=== PATIENT | female | born 1955 | race Caucasian/White ===

== ENCOUNTER 2016-10-25 08:10 | Outpatient (CLI) | payer OTHER | END 2016-10-25 08:11 | disposition home or self-care (01) | DX: M85.88 Other specified disorders of bone density and structure, other site (principal) ==

== ENCOUNTER 2017-11-28 09:26 | Outpatient (CLI) | payer OTHER | END 2017-11-28 09:27 | disposition home or self-care (01) | LOC: SC 09:26 | PROVIDERS: ATTEND Internal Medicine Pulmonary Disease | DX: G47.33 Obstructive sleep apnea (adult) (pediatric) (principal) | CPT/HCPCS: 99203; 99212 ==

== ENCOUNTER 2018-02-22 07:32 | Outpatient (CLI) | payer OTHER ==
[2018-02-22] MEDS ORDERED: IOPAMIDOL-300 50 ML VIAL PO ONE (07:48)
[2018-02-22] MEDS ORDERED: IOPAMIDOL-300 50 ML VIAL ONE (07:54)
--- NOTE | 2018-02-22 11:18 | CT Report ---
Procedure Date: 02/22/2018 Accession Number: [id number] / [id number] Procedure: CT - Abdomen/Pelvis W/O CPT Code: FULL RESULT: EXAM: Abdomen/Pelvis W/O DATE: 02/22/2018 9:55 AM CLINICAL HISTORY: NON HEALING SURGICAL WOUND. 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 COMPARISON: None. TECHNIQUE: Routine helical CT imaging was performed through the abdomen and pelvis. IV contrast: No. Enteric contrast: Yes. Reconstructions: Coronal and sagittal. In accordance with CT protocol optimization, one or more of the following dose reduction techniques were utilized for this exam: automated exposure control, adjustment of mA and/or KV based on patient size, or use of iterative reconstructive technique. FINDINGS: Lung Bases: Unremarkable. Liver: Normal. No masses. Gallbladder/Bile Ducts: The patient is status post cholecystectomy. Spleen: Normal. Pancreas: Normal. Adrenal Glands: Normal. Kidneys: Normal. No masses or hydronephrosis. Peritoneal Cavity/Bowel: Normal. No free fluid, free air or adenopathy. No masses or acute inflammatory process. Pelvic Organs: No oral contrast is seen in the anal region. There is asymmetric thickening of the anterior ratio renal fossa with loss of fat plane of the levator ani at 11:00. Findings are incompletely imaged on the most caudal axial slice. The bladder and visualized pelvic organs are within normal limits. Vasculature: No aneurysms or other significant abnormality. Bones: No significant abnormality. Other: None. IMPRESSION: Intra-abdominal and intrapelvic anatomy is normal above the pelvic floor within the limitations of a noncontrast CT. Question abnormal ischioanal fossa as described, incompletely imaged. If the patient's findings and symptoms of pain are in the anorectal region, MRI pelvis is recommended. RADIA
== END 2018-02-22 07:33 | disposition home or self-care (01) ==
LOC: DI 07:32
PROVIDERS: ATTEND Surgery
DX: T81.89XA Other complications of procedures, not elsewhere classified, initial encounter (principal)
CPT/HCPCS: 74176; Q9967

== ENCOUNTER 2019-05-28 08:52 | Outpatient (CLI) | payer OTHER ==
--- NOTE | 2019-05-28 09:35 | SLEEP CARE CONSULTATION ---
Information from patient questionnaire entered by Madisyn Kruse. I have reviewed and concur with the information entered by Madisyn Kruse. This document represents the service I personally performed and the decisions made by me, Paz Barry MD, [facility]. History of Present Illness Previous diagnosis: Moderate, Obstructive Sleep Apnea-Hypopnea Syndrome AHI: 20.4 Reason for CPAP/BiPAP follow up: annual Equipment type: CPAP Equipment obtained from: [employer] Mask brand: Resmed Prior sleep studies: Yes Year and Where: 2013 [facility] HPI additional information: HPI: Ms. Schofield returned today for follow up of nasal CPAP therapy. She was diagnosed to have moderate obstructive sleep apnea-hypopnea syndrome. The patient wears with a nasal mask. She reports using the device nightly and all through the night, averaging 8.6 hours a night. She complained of no particular problem with the device such as soreness on the face, dry nose, epistaxis, nasal congestion or headache. She thinks that the pressure of 9 10 cmH2O is comfortable but does not increase during the night as it used to. On the CPAP therapy she notices improvement in her sleep quality, and that she wakes up feeling fresher in the morning and more awake/alert during the day. The [place] Sleepiness Scale score 0. Her notices occasional snore despite the CPAP. The average residual AHI is 1.6; and air leak, 5.1 L/min. The 90th percentile pressure is 9.7 cmH2O. CPAP Compliance Data - Data Reviewed with Patient Average duration of nightly device use: 8h 34m Compliance rate %: 100 Current pressure setting (cmH2O): 9 Subjective Patient concerns: reports: aerophagia, nasal congestion, other (Machine no longer fully cycles) Initial [place] Sleepiness Scale score: 0 Current [place] Sleepiness Scale score: 0 Allergies and Home Medications Drug allergies reviewed: Yes Home medication list reviewed: Yes Review of Systems Review of systems same as previous: Yes Physical Exam Weight: 167 lb Impression and Plan IMPRESSION: 1. Obstructive Sleep Apnea-Hypopnea Syndrome, moderate, with the patient doing well on nasal CPAP therapy. She has excellent compliance and significant clinical improvement. The current pressure appears effective and comfortable. Overall, she is very satisfied with treatment and plans to continue with it long-term. Because the CPAP is now older than the useful life of 5 years, I will order the patient a new one and make it an autoCPAP set between 9 and 10 cmH2O. PLAN: 1. Prescription made for an autoCPAP, heated humidifier, and related supplies. 2. Try ResMed N30i mask or Respironics DreamWear nasal cushion mask. 3. Return for follow up after one month on the new machine. I spent 100% of this 20 minute visit face to face with the patient with greater than 50% of this was spent time counseling the patient and coordination of care.
== END 2019-05-28 08:53 | disposition home or self-care (01) ==
LOC: SC 08:52
PROVIDERS: ATTEND Internal Medicine Pulmonary Disease
DX: G47.33 Obstructive sleep apnea (adult) (pediatric) (principal)
CPT/HCPCS: 99212; 99213

== ENCOUNTER 2019-10-18 15:57 | Outpatient (CLI) | payer OTHER ==
--- NOTE | 2019-10-18 16:33 | Mammography Report ---
Reason: ROUTINE MAMMO Procedure Date: 10/18/2019 Accession Number: [id number] / [id number] Procedure: JANIS - Screening Mammo Dig Bilat CPT Code: Final Report FULL RESULT: EXAM: Screening Mammo Dig Bilat DATE: 10/18/2019 4:19 PM CLINICAL HISTORY: Screening encounter. History of nulliparity. Family history of breast cancer in the mother at the age of 50, sister at the age of 40 and a maternal grandmother at unknown age. TECHNIQUE: (B) - Bilateral CC and MLO views were obtained. COMPARISON: 08/14/2018 through 11/15/2011. PARENCHYMAL PATTERN: (D) - The breast(s) demonstrate(s) heterogeneously dense fibroglandular parenchyma. FINDINGS: There are no suspicious masses, calcifications, or areas of distortion. IMPRESSION: Negative examination. BI-RADS category 1. RECOMMENDATION: (ANNUAL) - Recommend routine annual screening mammography. BI-RADS CATEGORY: (1) - Negative. STANDARD QUALIFYING STATEMENTS: 1. This examination was not reviewed with the aid of Computer-Aided Detection (CAD). 2. A negative or benign imaging report should not preclude biopsy if clinically suspicious findings are present. 3. Dense breasts may obscure an underlying neoplasm. 4. This examination was reviewed without the aid of 3D breast imaging (tomosynthesis).
== END 2019-10-18 15:58 | disposition home or self-care (01) ==
LOC: DI 15:57
DX: Z12.31 Encounter for screening mammogram for malignant neoplasm of breast (principal); Z80.3 Family history of malignant neoplasm of breast
CPT/HCPCS: 77067

== ENCOUNTER 2021-03-03 11:21 | Outpatient (CLI) | payer OTHER ==
--- NOTE | 2021-03-03 12:07 | SLEEP CARE CONSULTATION ---
Information from patient questionnaire entered by Stephanie Isidro. I have reviewed and concur with the information entered by Stephanie Isidro. This document represents the service I personally performed and the decisions made by , Cielo Miller ARNP. History of Present Illness Service Date and Time: 03/03/2021 1121 Previous diagnosis: Moderate, Obstructive Sleep Apnea-Hypopnea Syndrome AHI: 20.4 (in 2013) Reason for follow up: annual (last seen 09/2019) Equipment type: CPAP Equipment obtained from: [employer] (getting supplies, but not recently) Mask style: Nasal Mask brand: Resmed (over the nose) Backup mask available: Yes (old mask) Last cushion change: 7 weeks plus Prior sleep studies: Yes Year and Where: [address] [place] [address] Sleep Lab Type of Sleep Study: Polysomnography HPI additional information: NING LEDESMA was diagnosed to have moderate, AHI 20.4, obstructive sleep apnea- hypopnea syndrome and returned today for CPAP therapy annual follow-up. CPAP Compliance Data - Data Reviewed with Patient Average duration of nightly device use: 8 hr 3 min Compliance rate %: 100 (180 days) Current pressure setting (cmH2O): 9 Humidity settin Heated hose settin Average residual AHI: 1.9 Average large leak: 39 min 40 sec Subjective Patient concerns: reports: other (snore while using device occasionally). denies: aerophagia, mask discomfort, air blowing in eyes, mask leak noise, condensation in mask/hose, nasal congestion, dry mouth, nose, throat, epistaxis Observed to snore while using device: Yes (not very much) Current pressure setting perceived as: comfortable On therapy, patient: reports: sleeping better, awakening more refreshed, being more awake and alert during the day, more rested overall. denies: drowsiness while driving Initial [place] Sleepiness Scale score: 0 (in 2018) Current [place] Sleepiness Scale score: 0 Allergies and Home Medications Home medication list reviewed: Yes (no changes) Review of Systems Review of systems same as previous: Yes (no changes) Physical Exam Heart Rate: 64 O2 Saturation: 97 Height: 5 ft 8 in Weight: 172 lb 12.8 oz Body Mass Index: 26.2 BMI Classification: Overweight Impression and Plan 1. Obstructive Sleep Apnea-Hypopnea Syndrome, moderate, with excellent treatment compliance and good apnea control. On CPAP therapy, the patient has better sleep quality and is more rested overall. Ning has not been able to get supplies since she has not had a compliance appointment for some time. I will send a prescription to update supplies to help get them restarted. Patient has a Dreamstation that may be on the recall. I discussed with patient that [employer] has a recall on several devices like the patients machine. Patient was encouraged to register their device online with [employer] for the recall to see if their device is affected. If their device is affected they should start a claim. Patient denies any black particles seen in machine or hoses, any unusual odors coming from device. Patient has not experienced any physical symptoms such as upper airway irritation, headache, skin or eye irritation, asthma, nausea/vomiting, difficulty breathing or chest pain. Patient informed that they may use an inline CPAP filter that they can obtain online to reduce chance of any particles being inhaled or ingested. We discussed thoroughly the health risks of not using the CPAP versus continuing use with the filter in place. If patient is not able to sleep due to waking up choking, gasping for air or other respiratory distress that they may decide to continue using it until it is either replaced or repaired. Patient voiced understanding and agreement with plan. Patient's apnea severity and rationale for treatment to reduce apnea, improve sleep quality and reduce cardiovascular and cerebrovascular events was reviewed. I also reviewed the benefit of consistent device use of CPAP for depression/anxiety. * Continue CPAP pressure at 9 cmH2O * Update supplies * Notify me if snoring with mask or feeling that the pressure is too much or too little * Attempt to lose weight * Call this office if any problems using CPAP * Return for follow up in 1 year, or sooner if concerns arise Counseling Topics: Spare mask, Weight loss health impact Visit Type: In Office Time Spent with Patient (minutes): 20 Provider Statement: I spent 100% of the Face to Face Visit with the patient with greater than 50% spent counseling the patient and coordination of care.
== END 2021-03-03 11:22 | disposition home or self-care (01) ==
LOC: SC 11:21
PROVIDERS: ATTEND Nurse Practitioner Family
DX: G47.33 Obstructive sleep apnea (adult) (pediatric) (principal)
CPT/HCPCS: 99212; 99213

== ENCOUNTER 2021-03-07 14:30 | Outpatient (CLI) | payer OTHER ==
--- NOTE | 2021-03-08 14:20 | Mammography Report ---
BILATERAL DIGITAL SCREENING MAMMOGRAM 3D/2D: 03/07/2021 CLINICAL: Family history of breast cancer. Comparison is made to exams dated: 10/18/2019 mammogram - [facility], 07/17/2017 ma mmogram, 01/08/2014 mammogram, 08/14/2018 mammogram - [facility], 04/17/2015 mammogram - [facility], and 12/25/2012 mammogram - [facility]. The tissue of both breasts is h eterogeneously dense. This may lower the sensitivity of mammography. There is a possible new 0.3 cm oval equal density asymmetry in the right breast anterior depth medial region seen on the craniocaudal view only 3 cm from the nipple. No other significant masses, calcifications, or other findings are seen in either breast. IMPRESSION: INCOMPLETE: NEEDS ADDITIONAL IMAGING EVALUATION The possible new 0.3 cm oval equal density asymmetry in the right breast is indeterminate. Additiona l views with possible ultrasound are recommended. This exam was interpreted at Station ID: [id number]. NOTE: For mammograms, a report in lay terms will be sent to the patient. Approximately 15% of breast malignancies will not be visualized mammographically. In the management of a palpable breast mass, a negative mammogram must not discourage biopsy of a clinically suspicious lesion. Electronically Signed By: Daniel Cedeno M.D. aty/:03/08/2021 08:30:23 ACR BI-RADS Category 0: Incomplete 3340F PARENCHYMAL PATTERN: (D) - The breast(s) demonstrate(s) heterogeneously dense fibroglandular parenchy ma. BI-RADS CATEGORY: (0) - 0 Mammo and [place] [id number] Immediate follow-up LATERALITY: (R)
== END 2021-03-07 14:31 | disposition home or self-care (01) ==
LOC: DI.S 14:30
DX: Z12.31 Encounter for screening mammogram for malignant neoplasm of breast (principal); R92.8 Other abnormal and inconclusive findings on diagnostic imaging of breast; Z80.3 Family history of malignant neoplasm of breast

== ENCOUNTER 2021-03-26 12:01 | Outpatient (CLI) | payer OTHER ==
--- NOTE | 2021-03-29 15:59 | Mammography Report ---
UNILATERAL RIGHT DIGITAL DIAGNOSTIC MAMMOGRAM 3D/2D: 03/26/2021 CLINICAL: Patient returns today to evaluate an asymmetry in the right breast. Comparison is made to exams dated: 03/07/2021 mammogram, 10/18/2019 mammogram - [facility], 08/14/2018 mammogram, 07/17/2017 mammogram - [facility], 04/17/2015 mammogram - [facility], and 01/08/2014 mammogram - [facility]. The tissue of right breast is he terogeneously dense. This may lower the sensitivity of mammography. There is a possible 0.3 cm oval equal density asymmetry in the right breast anterior depth medial reg ion seen on the craniocaudal view only 3 cm from the nipple. This is less prominent. No other significant masses or calcifications are seen in the breast. IMPRESSION: INCOMPLETE: NEEDS ADDITIONAL IMAGING EVALUATION The possible 0.3 cm oval equal density asymmetry in the right breast is less prominent and favored to represent fibroglandular tissue. An ultrasound is scheduled to follow. This exam was interpreted at Station ID: [id number]. NOTE: For mammograms, a report in lay terms will be sent to the patient. Approximately 15% of breast malignancies will not be visualized mammographically. In the management of a palpable breast mass, a negative mammogram must not discourage biopsy of a clinically suspicious lesion. Electronically Signed By: Kirill Baum M.D. jr/:03/26/2021 13:19:27 ACR BI-RADS Category 0: Incomplete 3340F PARENCHYMAL PATTERN: (D) - The breast(s) demonstrate(s) heterogeneously dense fibroglandular juanita calle. BI-RADS CATEGORY: (0) - 0 Ultrasound [id number] Immediate follow-up LATERALITY: (B)
--- NOTE | 2021-03-29 15:59 | Ultrasound Report ---
LIMITED ULTRASOUND OF RIGHT BREAST: 03/26/2021 CLINICAL: Patient returns today to evaluate a focal asymmetry in the right breast. Comparison is made to exams dated: 03/26/2021 mammogram, 03/07/2021 mammogram, 10/18/2019 mammogram - [facility], 08/14/2018 mammogram, 07/17/2017 mammogram - [facility], and 2014 mammogram - [facility]. Real-time ultrasound of the right breast 2-4 o'clock region was performed. Bauman scale images of the real-time examination were reviewed. There is no sonographic correlate for the 0.3 cm asymmetry in the right breast at 3 o'clock anterior depth 3 cm from the nipple. IMPRESSION: PROBABLY BENIGN Mammographically seen 0.3 cm asymmetry has no sonographic correlate and is less prominent with spot c ompression. This is favored to represent fibroglandular tissue. A follow-up mammogram in 6 months is recommended to demonstrate stability. This exam was interpreted at Station ID: [id number]. Electronically Signed By: Kirill Baum M.D. jr/:03/26/2021 13:20:44 Ultrasound BI-RADS: 3 Probably benign BI-RADS CATEGORY: (3) - 3 Mammogram [id number] 6 month follow-up LATERALITY: (B)
== END 2021-03-26 12:02 | disposition home or self-care (01) ==
LOC: DI 12:01
PROVIDERS: ATTEND Family Medicine
DX: R92.8 Other abnormal and inconclusive findings on diagnostic imaging of breast (principal)

== ENCOUNTER 2022-05-06 08:18 | Outpatient (CLI) | payer MEDICARE, OTHER ==
[2022-05-06 09:01] VITALS: BP 116/70
--- NOTE | 2022-05-06 09:01 | SLEEP CARE CONSULTATION ---
Information from patient questionnaire entered by Ilana Huerta. I have reviewed and concur with the information entered by Ilana Huerta. This document represents the service I personally performed and the decisions made by me, Cielo Miller ARNP. History of Present Illness Service Date and Time: 05/06/2022 0818 Previous diagnosis: Moderate, Obstructive Sleep Apnea-Hypopnea Syndrome AHI: 20.4 (in 2013) Reason for follow up: annual (LAST SEEN 02/24) Equipment type: CPAP (DREAMSTATION) Equipment obtained from: [employer] (getting supplies but needs updated prescription) Mask style: Nasal (over the nose) Backup mask available: Yes (old mask) Last cushion change: 2 weeks + Prior sleep studies: Yes Year and Where: [address] [place] [address] Sleep Lab Type of Sleep Study: Polysomnography HPI additional information: NING LEDESMA was diagnosed to have moderate, AHI 20.4, obstructive sleep apnea- hypopnea syndrome and returned today for CPAP therapy annual follow-up. Sleep Study - Results Type of Sleep Study: Polysomnography Prior sleep studies: Yes Year and Where: [address] [place] [address] Sleep Lab CPAP Compliance Data - Data Reviewed with Patient Average duration of nightly device use: 7 hours, 53 minutes, 9 seconds Compliance rate %: 98.9 (11/06/21 to 05/04/22; 179/180 days used) Current pressure setting (cmH2O): 9.0 Average residual AHI: 2.2 Average large leak: 1 hour 18 mins 37 secs Compliance data discussion: Patient is using a new [employer] replacement device that is a Dreamstation that she received about 3 months ago. Subjective Missed days of use due to: reports: travel (flying) Patient concerns: reports: other (Ramp setting is not automatic like her old one). denies: aerophagia, mask discomfort, air blowing in eyes, mask leak noise, condensation in mask/hose, nasal congestion, dry mouth, nose, throat, epistaxis Observed to snore while using device: No Current pressure setting perceived as: comfortable On therapy, patient: reports: sleeping better, awakening more refreshed, being more awake and alert during the day, more rested overall. denies: drowsiness while driving Initial [place] Sleepiness Scale score: 0 (in 2018) Current [place] Sleepiness Scale score: 0 (05/06/22) Allergies and Home Medications Drug allergies reviewed: Yes (NKDA) Home medication list reviewed: Yes (no changes) Allergy and home medication list: Allergies No Known Drug Allergies Allergy (Verified 12/10/15 15:50) Review of Systems Review of systems same as previous: Yes (no changes) Physical Exam Vital signs obtained and entered by: NAYELI MOSELEY Blood Pressure: 116/70 (LEFT ARM ) Cuff size: regular Heart Rate: 69 O2 Saturation: 98 Height: 5 ft 8 in Weight: 182 lb Body Mass Index: 27.6 BMI Classification: Overweight Impression and Plan 1. Obstructive Sleep Apnea-Hypopnea Syndrome, moderate, with good treatment compliance and good apnea control. On CPAP therapy, the patient has better sleep quality and is more rested overall. Patient has significant improvement of their sleep apnea and are satisfied with current CPAP therapy. Patient denies problems with oral dryness, nasal congestion, epistaxis, skin irritation or aerophagia. Patient's apnea severity and rationale for treatment to reduce apnea, improve sleep quality and reduce cardiovascular and cerebrovascular events was reviewed. I also reviewed the benefit of consistent device use of CPAP for depression/anxiety. * Continue CPAP pressure at 9 cmH2O * Update supplies * Notify me if snoring with mask or feeling that the pressure is too much or too little * Call this office if any problems using CPAP * Return for follow up in 1 year, or sooner if concerns arise Counseling Topics: Spare mask Visit Type: In Office Time Spent with Patient (minutes): 11 Provider Statement: I spent 100% of the Face to Face Visit with the patient with greater than 50% spent counseling the patient and coordination of care.
== END 2022-05-06 08:19 | disposition home or self-care (01) ==
LOC: SC 08:18
PROVIDERS: ATTEND Nurse Practitioner Family
DX: G47.33 Obstructive sleep apnea (adult) (pediatric) (principal)
CPT/HCPCS: 99212; G0463

== ENCOUNTER 2022-05-27 08:08 | Outpatient (CLI) | payer MEDICARE, OTHER ==
--- NOTE | 2022-05-27 10:52 | Mammography Report ---
BILATERAL DIGITAL DIAGNOSTIC MAMMOGRAM 3D/2D: 05/27/2022 CLINICAL: Patient returns for a 6 month follow up of the right breast, due for bilateral exam. Comparison is made to exams dated: 11/11/2021 mammogram - [facility], 03/26/2021 mammogram, 03/07/2021 mammogram, 10/18/2019 mammogram - [facility], 08/14/2018 mammogram, and 07/17/2017 ma mmogram - [facility]. Both breasts are heterogeneously dense, which may obscure small masses (category c / 51-75% glandular tissue). There is an asymmetry in the right breast anterior depth medial region seen on the craniocaudal view only. This is not significantly changed and was not seen on the prior ultrasound. No other significant masses, calcifications, or other findings are seen in either breast. IMPRESSION: PROBABLY BENIGN The asymmetry in the right breast most likely is fibroglandular tissue and is probably benign. A follow-up mammogram in 12 months is recommended to demonstrate long-term stability. Exam findings were conveyed to the patient. Based on the Tyrer Cuzick model (a risk assessment model) the patients lifetime risk is 7.6% and her 10 year risk is 3.8%. According to the ACR, ACS, and NCCN guidelines, an annual breast MRI exam johann g with mammogram is recommended if the patients lifetime risk is 20% or greater. This exam was interpreted at Station ID: [id number]. NOTE: For mammograms, a report in lay terms will be sent to the patient. Approximately 15% of breast malignancies will not be visualized mammographically. In the management of a palpable breast mass, a negative mammogram must not discourage biopsy of a clinically suspicious lesion. Electronically Signed By: Evin Mccollum M.D. slc/:05/27/2022 09:03:23 ACR BI-RADS Category 3: Probably benign 3343F PARENCHYMAL PATTERN: (D) - The breast(s) demonstrate(s) heterogeneously dense fibroglandular parenchy ma. BI-RADS CATEGORY: (3) - 3 Mammogram [id number] 12 month follow-up LATERALITY: (B)
== END 2022-05-27 08:09 | disposition home or self-care (01) ==
LOC: DI 08:08
PROVIDERS: ATTEND Nurse Practitioner Family
DX: R92.8 Other abnormal and inconclusive findings on diagnostic imaging of breast (principal)

== ENCOUNTER 2023-06-15 07:47 | Outpatient (CLI) | payer MEDICARE, OTHER ==
--- NOTE | 2023-06-15 09:23 | Mammography Report ---
BILATERAL DIGITAL DIAGNOSTIC MAMMOGRAM 3D/2D: 06/15/2023 CLINICAL: Patient returns for a 12 month follow up of the right breast, due for bilateral exam. Comparison is made to exams dated: 05/27/2022 mammogram - [facility], 11/11/2021 [facility], 03/26/2021 mammogram, 03/07/2021 mammogram, 10/18/2019 mammogram - [facility], and 08/14/2018 mammogram - [facility]. Both breasts are heterogeneously dense, which may obscure small masses (category c / 51-75% glandular tissue). There is an asymmetry in the right breast anterior depth medial region seen on the craniocaudal view only. This is similar to less prominent and was not seen on the prior ultrasound. No other significant masses, calcifications, or other findings are seen in either breast. Mammograms are otherwise stable. IMPRESSION: BENIGN The asymmetry in the right breast most likely is fibroglandular tissue, has demontrated two years of stability and is therefore benign. There is no mammographic evidence of malignancy. Return to annual mammogram screening schedule is rec ommended. Findings and recommendations were conveyed to the patient at time of exam. Based on Tyrer-Cuzick model (a risk assessment model), the patient's lifetime risk is 20.4% and her 1 0 year risk is 11.1%. If a patient has an elevated risk, a more comprehensive evaluation should be co nsidered and/or a referral to a genetic counselor. The [place] [employer], [place] [employer], and NCCN Guidelines advise the consideration of Breast MRI as an adjunct to screening mammo graphy in patients whose "Lifetime risk to develop breast cancer" is 20% or higher. This exam was interpreted at Station ID: [id number]. NOTE: For mammograms, a report in lay terms will be sent to the patient. Approximately 15% of breast malignancies will not be visualized mammographically. In the management of a palpable breast mass, a negative mammogram must not discourage biopsy of a clinically suspicious lesion. Electronically Signed By: Marely tatum/:06/15/2023 08:43:11 letter sent: No_Letter ACR BI-RADS Category 2: Benign Finding(s) 3342F PARENCHYMAL PATTERN: (D) - The breast(s) demonstrate(s) heterogeneously dense fibroglandular parenchy ma. BI-RADS CATEGORY: (2) - 2 Mammogram [id number] return to screening LATERALITY: (B)
== END 2023-06-15 07:48 | disposition home or self-care (01) ==
LOC: DI 07:47
PROVIDERS: ATTEND Nurse Practitioner Family
DX: N63.41 Unspecified lump in right breast, subareolar (principal); R92.333 Mammographic heterogeneous density, bilateral breasts